=== PATIENT | male | born 1990 | race Two or more races ===

== ENCOUNTER 2020-12-27 08:00 | Outpatient (CLI) | payer OTHER | END 2020-12-27 08:30 | disposition home or self-care (01) | LOC: PPH VACUNA 08:00 | PROVIDERS: ATTEND Emergency Medicine Pediatric Emergency Medicine | DX: Z23 Encounter for immunization (principal) ==

== ENCOUNTER 2022-10-15 07:20 | Day surgery (SDC) | payer OTHER ==
[~2022-10-15 07:20] MED LIST: COZAAR100 MG PO; HYDROCHLOROTHIA25 MG PO
[2022-10-15] MEDS ORDERED: MIRALAX17 GM PO (08:31)
[2022-10-15] MEDS ORDERED: TRAMADOL HCL50 MG PO (08:31)
[2022-10-15] MEDS ORDERED: KETO10TA2 PO (08:31)
[2022-10-15] MEDS ORDERED: TYLENOL ARTHRI650 MG PO (08:31)
== END 2022-10-15 15:45 | disposition home or self-care (01) ==
LOC: CIR.AMB 07:20
PROVIDERS: ATTEND Surgery
DX: K40.90 Unilateral inguinal hernia, without obstruction or gangrene, not specified as recurrent (principal); I10 Essential (primary) hypertension; Z20.822 Contact with and (suspected) exposure to COVID-19
CPT/HCPCS: 49650; C1781